=== PATIENT | female | born 1940 | race Asian ===

== ENCOUNTER → 2017-04-27 | Outpatient (CLI) | payer MEDICARE, OTHER ==
[~2017-04-27] MED LIST: 3N1 COMMODE MC; ADV10050 INHALATION; ASPI325T32 PO; BUPR100T14 PO; FLUO10CA17 PO; IBUP800T25 PO; OMEP20CA16 PO; OXYC-481 PO; PREM3 PO; TRAM50TA2 PO; WALK1EAC23 MC
--- NOTE | 2017-04-27 16:16 | RADRPT ---
PROCEDURE: XR Left hip and pelvis. CLINICAL INDICATION: Left hip pain and pelvic pain. Postop. TECHNIQUE: 3 views. Frontal pelvis. Frontal and lateral left hip. COMPARISON: 04/24/2016. FINDINGS: There is a right hip total arthroplasty which appears satisfactory. There are moderate degenerative changes of the left hip with joint space narrowing and osteophytes. Left hip articular surfaces are intact. There is no lytic or blastic lesion. There are severe degenerative changes of the visualized portion of the lumbar spine with scoliosis c onvex right. The sacroiliac joints are unremarkable. IMPRESSION: 1. Satisfactory postoperative appearance of the right hip. 2. Moderate degenerative changes of the left hip. 3. Lumbar scoliosis convex right and severe degenerative changes of the lower lumbar spine. RPTAT: QQ .Robbie Reeder MD, MD Date Time Electronically viewed and signed by .Robbie Reeder MD, on 04/27/2017 16:16 .R/
--- NOTE | 2017-04-27 16:16 | RADRPT ---
PROCEDURE: XR Left hip and pelvis. CLINICAL INDICATION: Left hip pain and pelvic pain. Postop. TECHNIQUE: 3 views. Frontal pelvis. Frontal and lateral left hip. COMPARISON: 04/24/2016. FINDINGS: There is a right hip total arthroplasty which appears satisfactory. There are moderate degenerative changes of the left hip with joint space narrowing and osteophytes. Left hip articular surfaces are intact. There is no lytic or blastic lesion. There are severe degenerative changes of the visualized portion of the lumbar spine with scoliosis c onvex right. The sacroiliac joints are unremarkable. IMPRESSION: 1. Satisfactory postoperative appearance of the right hip. 2. Moderate degenerative changes of the left hip. 3. Lumbar scoliosis convex right and severe degenerative changes of the lower lumbar spine. RPTAT: QQ .Robbie Reeder MD, MD Date Time Electronically viewed and signed by .Robbie Reeder MD, on 04/27/2017 16:15 .R/
== END | disposition home or self-care (01) ==
LOC: HKI 13:35
PROVIDERS: ATTEND Orthopaedic Surgery
DX: M25.552 Pain in left hip (principal); M70.62 Trochanteric bursitis, left hip; Z96.641 Presence of right artificial hip joint
CPT/HCPCS: 20610; 72170; 73502; G0463; J1030